=== PATIENT | female | born 1945 | race Caucasian/White ===

== ENCOUNTER 2017-03-17 13:54 | Inpatient (IN) | payer MEDICARE, BC ==
[2017-03-17 14:10] VITALS: BP 177/83; BMI 28.1
--- NOTE | 2017-03-17 14:10 | NUR ---
RECEIVED TO ROOM [address]ATO'S OFFICE. A/O X3. SKIN IS WNL. IV SITED TO RIGHT WRIST AFTER 2 ATTEMPTS WITH [address] OF ABD AND PELVIS SHORTLY. CONTRAST CONSUMED.
[2017-03-17 14:12] VITALS: BP 177/83
[2017-03-17 15:21] LABS: BASOPHILS 0.2 % (0-2); EOSINOPHILS 0.7 % (0-7); HEMATOCRIT 45.6 % (36.0-48.0); HEMOGLOBIN 15.1 g/dL (12-16); IMMATURE GRANULOCYTES 0.5 % (0-5); LYMPHOCYTES 12.2 % (15-50); MCH 32.3 pg (26.0-34.0); MCHC 33.1 g/dL (31.0-37.0); MCV 97.6 fL (80.0-100.0); MEAN PLATELET VOLUME 10.8 fL (7.4-10.4); MONOCYTES 5.8 % (2-11); NEUTROPHILS 80.6 % (40-80); RBC 4.67 10x6/uL (4.00-5.40); RDW 14.5 % (11.5-14.5); WBC 5.8 10x3/uL (4.8-10.8)
[2017-03-17 15:22] LABS: PLATELET COUNT 163 10x3/uL (130-400)
[2017-03-17 15:30] LABS: ALBUMIN 3.6 g/dL (3.4-5.0); ANION GAP 13.4 mmol/L (8-16); BILIRUBIN - TOTAL 0.62 mg/dL (0.2-1.3); CALCIUM 9.1 mg/dL (8.5-10.1); CARBON DIOXIDE 26.4 mmol/L (21.0-32.0); CREATININE - SERUM 0.8 mg/dL (0.6-1.3); POTASSIUM - SERUM 3.8 mmol/L (3.5-5.1); PROTEIN - SERUM 7.2 g/dL (6.4-8.2)
--- NOTE | 2017-03-17 16:23 | NUR ---
RESTING QUIETLY IN BED. AT BEDSIDE. DENIES NEEDS.
--- NOTE | 2017-03-17 16:55 | NUR ---
OFF UNIT VIA FOR CT SCAN.
--- NOTE | 2017-03-17 17:10 | NUR ---
RETURNED FROM CT. NO C/O AT THIS TIME.
--- NOTE | 2017-03-17 18:04 | NUR ---
C/O BEING HUNGRY. NPO AT THIS TIME. DENIES NEEDS. NO CHANGES NOTED.
[2017-03-17 20:00] VITALS: BP 140/69
--- NOTE | 2017-03-17 20:01 | NUR ---
PATIENT RESTING IN BED AND DENIES NEEDS AT THIS TIME. BED IN LOWEST POSITION AND CALL LIGHT WITHIN REACH. ENCOURAGED PATIENT TO CALL IF SHE HAS FURTHER NEEDS.
[2017-03-18] VITALS: BP 135/72
--- NOTE | 2017-03-18 02:15 | NUR ---
SLEEPING, NO DISTRESS NOTED, BREATHING EVEN UNLABORED, CALL LIGHT IN REACH, GERRI CONTINUE TO MONITOR
[2017-03-18 06:15] LABS: BASOPHILS 0.3 % (0-2); HEMATOCRIT 38.6 % (36.0-48.0); HEMOGLOBIN 12.9 g/dL (12-16); IMMATURE GRANULOCYTES 0.3 % (0-5); LYMPHOCYTES 44.2 % (15-50); MCH 32.3 pg (26.0-34.0); MCHC 33.4 g/dL (31.0-37.0); MCV 96.5 fL (80.0-100.0); MEAN PLATELET VOLUME 10.2 fL (7.4-10.4); MONOCYTES 12.4 % (2-11); NEUTROPHILS 39.8 % (40-80); PLATELET COUNT 178 10x3/uL (130-400); RDW 14.5 % (11.5-14.5)
[2017-03-18 06:21] LABS: WBC 3.3 10x3/uL (4.8-10.8)
[2017-03-18 06:51] LABS: ALBUMIN 2.7 g/dL (3.4-5.0); ANION GAP 11.1 mmol/L (8-16); BILIRUBIN - TOTAL 0.4 mg/dL (0.2-1.3); CALCIUM 8.1 mg/dL (8.5-10.1); CARBON DIOXIDE 25.8 mmol/L (21.0-32.0); CREATININE - SERUM 0.8 mg/dL (0.6-1.3); POTASSIUM - SERUM 3.9 mmol/L (3.5-5.1); PROTEIN - SERUM 5.7 g/dL (6.4-8.2)
--- NOTE | 2017-03-18 07:52 | NUR ---
DR. DONATO HERE. AWAKE AND ALERT. LUNGS ARE CLEAR BILATERALLY, NO COUGH NOTED.SKIN IS INTACT WITHOUT REDNESS. IV TO RIGHT WRIST IS PATENT WITHOUT REDNESS AT INSERTION SITE. DENIES NEEDS.
[2017-03-18] MEDS ORDERED: SYNTHROID112 MCG PO (07:53)
[2017-03-18] MEDS ORDERED: BAYER CHEWABLE81 MG PO (07:53)
[2017-03-18 08:38] VITALS: BP 137/78
[2017-03-18 11:11] VITALS: BMI 28.0
[2017-03-18 13:01] VITALS: BP 130/70
[2017-03-18 16:18] VITALS: BP 128/74
--- NOTE | 2017-03-18 18:24 | NUR ---
DISCHARGED TO HOME WITH FAMILY AMBULATORY. DISCHARGE INSTURCTIONS GIVEN BOTH VERBALLY AND WRITTEN . ALL QUESTIONS ANSWERED. PATINET AND FAMILY VERBALIZED UNDERSTANDING OF SAME. NO NEW PRESCRIPTIONS NEEDED. IV WAS D/C EARLIER WITH CATHETER INTACT. ALL BELONGINGS WITH PATIENT.
== END 2017-03-18 18:28 | disposition home or self-care (01) | DRG 392 ==
LOC: D.MS 13:54
PROVIDERS: ADMIT Family Medicine
DX: A08.4 Viral intestinal infection, unspecified (principal); D68.51 Activated protein C resistance; K21.9 Gastro-esophageal reflux disease without esophagitis; K76.89 Other specified diseases of liver

== ENCOUNTER → 2018-02-24 10:39 | Outpatient (CLI) | payer MEDICARE, BC ==
[~2018-02-24 10:39] MED LIST: BAYER CHEWABLE81 MG PO; SYNTHROID112 MCG PO
== END | disposition home or self-care (01) ==
LOC: D.US 10:39
DX: E03.9 Hypothyroidism, unspecified (principal)